=== PATIENT | female | born 1985 | race Two or more races ===

== ENCOUNTER 2024-07-24 17:05 | Outpatient (CLI) | payer SELFPAY ==
[2024-07-24 17:36] LABS: Appearance Urine Clear (Clear); Bilirubin Urine Negative (Negative); Blood Urine Negative (Negative); Color Urine Yellow (Yellow); Glucose Urine Negative (Negative); Ketones Urine Negative (Negative); Leukocyte Esterase Urine 1+ (Negative); Nitrite Urine Negative (Negative); Protein Urine Negative (Negative); Urobilinogen Urine 0.2 (0.2-1.0); pH Urine 6.5 (5.0-8.5)
[2024-07-24 17:47] LABS: Bacteria Urine Moderate; RBC Urine 0-2 (0-2); Squamous Epithelial Cell Urine Few (None-Few)
[2024-07-24 17:51] LABS: Basophils Absolute Auto 0.02 K/uL (0.00-0.30); Basophils Percent Auto 0.3 % (0.0-3.0); Eosinophils Absolute Auto 0.16 K/uL (0.00-0.50); Eosinophils Percent Auto 2.2 % (0.0-7.0); Hematocrit 38.1 % (33.0-51.0); Hemoglobin* 11.6 gm/dL (12.0-16.0); Immature Granulocytes Abs Auto 0.01 K/uL (0.00-0.30); Immature Granulocytes Pct Auto 0.1 %; Lymphocytes Absolute Auto 2.88 K/uL (0.90-2.90); Lymphocytes Percent Auto 38.7 % (20-44); Mean Corpuscular HGB Conc 30 gm/dL (32-36); Mean Corpuscular Hemoglobin 25 pg (26-34); Mean Corpuscular Volume 81 fL (80-100); Monocytes Percent Auto 5.9 % (0.0-11.0); Neutrophils Absolute Auto 3.93 K/uL (1.7-7.0); Neutrophils Percent Auto 52.8 % (42.0-72.0); Platelet Count* 282 K/uL (140-440); RDW Coefficient of Variation % 22.4 % (11.5-15.5); Red Blood Count 4.73 m/uL (4.00-5.20); White Blood Count* 7.44 K/uL (4.50-11.00)
[2024-07-24 18:24] LABS: Slide Review Reflex No
== END 2024-07-24 17:06 | disposition home or self-care (01) ==
LOC: LAB 17:09
PROVIDERS: Visit Provider Family Medicine
DX: N39.0 Urinary tract infection, site not specified (principal); D50.9 Iron deficiency anemia, unspecified
CPT/HCPCS: 36415; 81001; 81003; 85025; 87086

== ENCOUNTER 2025-05-14 10:37 | Emergency (ER) | payer OTHER, SELFPAY ==
[2025-05-14] VITALS (32 sets, daily range): BP systolic 92–134; BP diastolic 56–86; PULSE 56–104; RESP 9–20; TEMP 36.6; O2SAT 96–100; BMI 22.9
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
[2025-05-14] MEDS: 0.9 % SODIUM CHLORIDE 500 ML 500 ML IV (12:16)
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
[2025-05-14] MEDS: KETOROLAC 10 MG TABLET PO (13:23)
[2025-05-14] MEDS: HYDROCODONE/ACETAMIN 7.5-325 TABLET 1 TAB PO (13:24)
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
[2025-05-14 15:00] LABS: Hematocrit* 39.0 % (33.0-51.0); Hemoglobin* 12.5 gm/dL (12.0-16.0); Immature Granulocytes Abs Auto 0.07 K/uL (0.00-0.30); Immature Granulocytes Pct Auto 0.7 %; Lymphocytes Absolute Auto 2.16 K/uL (0.90-2.90); Mean Corpuscular HGB Conc 32 gm/dL (32-36); Mean Corpuscular Hemoglobin 27 pg (26-34); Mean Corpuscular Volume 85 fL (80-100); RDW Coefficient of Variation % 13.1 % (11.5-15.5); Red Blood Count* 4.59 m/uL (4.00-5.20); White Blood Count* 10.03 K/uL (4.50-11.00)
[2025-05-14 15:12] LABS: Slide Review Reflex No
[2025-05-14 15:15] LABS: Albumin* 4.1 g/dL (3.3-5.0); Chloride* 103 mmol/L (96-114); Potassium* 3.8 mmol/L (3.6-5.1); Sodium* 138 mmol/L (135-149)
[2025-05-14 15:17] LABS: Blood Urea Nitrogen* 11 mg/dL (5-24); Creatinine* 0.7 mg/dL (0.5-1.5); Est. Creatinine Clearance* 102.01; Estimated Glomerular Filt Rate 113 ml/min; INR 0.98 (0.91-1.10); Prothrombin Time 13.8 Seconds
[2025-05-14 15:18] LABS: Alanine Aminotransferase* 20 U/L (4-35); Alkaline Phosphatase* 50 U/L (40-150); Anion Gap 11 mEq/L (7-15); Aspartate Amino Transferase* 25 U/L (12-35); Bilirubin Direct* 0.2 mg/dL (0.0-0.5); Bilirubin Total* 0.5 mg/dL (0.1-1.5); Calcium* 8.7 mg/dL (8.4-10.6); Carbon Dioxide* 24 mmol/L (20-32); Glucose* 108 mg/dL (60-115); Total Protein* 6.5 g/dL (6.0-8.3)
== END 2025-05-14 16:12 | disposition home or self-care (01) ==
PROVIDERS: Emergency Provider Family Medicine
DX: R51.9 Headache, unspecified (principal); R55 Syncope and collapse; M54.2 Cervicalgia; M79.652 Pain in left thigh; M25.512 Pain in left shoulder; V43.52XA Car driver injured in collision with other type car in traffic accident, initial encounter
CPT/HCPCS: 36415; 70450; 71260; 72100; 72125; 72170; 73030; 73552; 74177; 80048; 80076; 84484; 85025; 85610; 85730; 94761; 96374; 99285; 99291; T1013; A9270; J2270; J7030; Q9967